=== PATIENT | female | born 1980 ===

== ENCOUNTER 2022-02-07 20:42 | Emergency (ER) | payer SELFPAY ==
--- OUTSIDE RECORDS SUMMARY | 2022-02-07 20:45 | XMS REPORT | Continuity of Care Document ---
:1980 Author Organization [facility] t Address [address] [place] [address] Care Team Providers Name Role Phone Jeovany Cheung APRN Primary Care Physician [phone] [email or web address] Attending Clinician Unavailable RODRI RIZZO Attending Clinician Unavailable [email or web address] Admitting Clinician Unavailable Problems Condition Condition Condition Status Onset Resolution Last Treating Co mments Source Name Details Category Date Date Treatment Clinician Date No known No known Disease Metho di active active st problems problems Hospit [facility] Allergies, Adverse Reactions, Alerts This patient has no known allergies or adverse reactions. Social History Social Habit Start Date Stop Date Quantity Comments Source Sex Assigned At [birth year] [facility] 00:00:00 00:00:00 Smoking Status Start Date Stop Date Source Tobacco smoking consumption unknown [facility] Medications Ordered Filled Start Stop Current Ordering Indication Dosage Frequency Signature Comments Components Source Medication Medication Date Date Medication? Clinician (SIG) Name Name No known No No known Metho di medications 2-[address] 12:51: [facility] 02 l Procedures This patient has no known procedures. Plan of Care Planned Activity Planned Date Details Comments Source Future Scheduled 2022-01-28 BREAST CANCER [facility] Test 07:13:58 SCREENING [code = BREAST CANCER SCREENING] Future Scheduled 2022-01-28 INFLUENZA VACCINE Method [facility] Test 07:13:58 [code = INFLUENZA VACCINE] Future Scheduled 2022-01-28 HEPATITIS B [facility] Test 07:13:58 VACCINES (1 of 3 - 3-dose series) [code = HEPATITIS B VACCINES (1 of 3 - 3-dose series)] Future Scheduled 2022-01-28 [facility] (#1[facility] [code = COVID-19 VACCINE (#1)] Future Scheduled 2022-01-28 Hepatitis C [facility] Test 07:13:58 screening (procedure) [code = 179663155] Future Scheduled 2022-01-28 Screening for [facility] Test 07:13:58 malignant neoplasm of cervix (procedure) [code = 465544310] Encounters Start End Encounter Admission Attending Care Care Encounter Source Date/Time Date/Time Type Type Clinicians Facility Department ID 2021-11-26 2021-11-26 Outpatient [email or web address] PRIV PRIV [id number] [facility] 00:00:00 00:00:00 Rosalind_Hakeem [id number] Medica l 2020-05-03 2020-05-03 Outpatient [facility] [id number] [place] 00:00:00 00:00:00 RODRI [address] 2020-05-03 2020-05-03 Outpatient [facility] [id number] [place] 00:00:00 00:00:00 RODRI [address] Results This patient has no known results.
[2022-02-07 21:26] LABS: Urine Blood 3+ (Negative); Urine Glucose Negative (Negative); Urine Protein 3+ (Negative)
[2022-02-07 21:47] LABS: Urine Bacteria <20 /HPF (<20); Urine Mucus Slight /HPF (None Seen); Urine RBC >50 /HPF (None Seen)
[2022-02-07] MEDS ORDERED: PHENAZOPYRIDINE 100MG TAB PO ONE ×2 (22:47→23:43)
--- NOTE | 2022-02-07 23:28 | ER ---
Nurse's Notes [facility] Name: Kristen Burns Age: 41 yrs Sex: Female : 1980 Arrival Date: 02/07/2022 Time: 20:43 Bed 20 Private MD: Diagnosis: UTI/ Urinary tract infection, site not specified;Hematuria, unspecified;Dysuria Presentation: 02/07 21:00 Chief complaint: Patient states: she has burning with urination, urgency, and blood in bb her urine x 2 hours. Coronavirus screen: At this time, the client does not indicate any symptoms associated with coronavirus-19. Ebola Screen: No symptoms or risks identified at this time. Initial Sepsis Screen: Does the patient meet any 2 criteria? No. Patient's initial sepsis screen is negative. Does the patient have a suspected source of infection? Yes: Dysuria/Frequency/Urgency/UTI. Risk Assessment: Do you want to hurt yourself or someone else? Patient reports no desire to harm self or others. Onset of symptoms was February 07, 2022. 21:00 Method Of Arrival: Ambulatory bb 21:00 Acuity: LIYAH 3 bb Triage Assessment: 21:01 General: Appears in no apparent distress. uncomfortable, Behavior is anxious. Pain: bb Denies pain. Neuro: Level of Consciousness is awake, alert, obeys commands, Oriented to person, place, time, situation. Cardiovascular: Capillary refill < 3 seconds Patient's skin is warm and dry. Respiratory: Respiratory effort is even, unlabored, Respiratory pattern is regular. GI: No signs and/or symptoms were reported involving the gastrointestinal system. : Reports burning with urination, urinary frequency, hematuria. Derm: Skin is pink, warm \T\ dry. Musculoskeletal: Circulation, motion, and sensation intact. 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 - Social history:: Smoking status: Patient denies any tobacco usage or history of. Screenin:11 Abuse screen: Denies threats or abuse. Nutritional screening: No deficits noted. vc1 Tuberculosis screening: No symptoms or risk factors identified. Fall Risk None identified. Assessment: 22:00 Reassessment: No changes from previously documented assessment. Patient and/or family vc1 updated on plan of care and expected duration. Pain level reassessed. 23:11 Reassessment: No changes from previously documented assessment. Patient and/or family vc1 updated on plan of care and expected duration. Pain level reassessed. Vital Signs: 21:00 BP 118 / 87; Pulse 78; Resp 16 S; Temp 98.5(O); Pulse Ox 100% on R/A; Weight 46.27 kg bb (R); Height 5 ft. 3 in. (160.02 cm) (R); Pain 0/10; 22:00 BP 111 / 79; Pulse 77; Resp 16; Pulse Ox 100% ; vc1 23:00 BP 101 / 72; Pulse 68; Resp 17; Pulse Ox 100% ; vc1 21:00 Body Mass Index 18.07 (46.27 kg, 160.02 cm) bb ED Course: 20:43 Patient arrived in ED. as 21:01 Triage completed. bb 21:01 Arm band placed on Patient placed in waiting room, Patient notified of wait time. bb 21:15 Torrey Contreras DO is Attending Physician. ms3 21:27 Olinda Wang, RN is Primary Nurse. vc1 21:30 Patient has correct armband on for positive identification. Bed in low position. Call vc1 light in reach. Pulse ox on. NIBP on. 23:27 Otf Ruiz DO is Referral Physician. ms3 02/08 00:23 No provider procedures requiring assistance completed. Patient did not have IV access vc1 during this emergency room visit. Administered Medications: 02/07 22:49 Drug: Pyridium (phenazopyridine) 100 mg Route: PO; vc1 02/08 00:24 Follow up: Response: No adverse reaction vc1 02/07 23:54 Drug: Rocephin (cefTRIAXone) 1 grams Route: IM; Site: left vastus lateralis; vc1 02/08 00:24 Follow up: Response: No adverse reaction vc1 02/07 23:54 Drug: Pyridium (phenazopyridine) 100 mg Route: PO; vc1 02/08 00:24 Follow up: Response: No adverse reaction vc1 00:24 CANCELLED (Not available in ER): cefPODOXime 100 mg PO once vc1 Medication: 02/07 23:11 VIS not applicable for this client. vc1 Outcome: 23:27 Discharge ordered by ms3 02/08 00:23 Discharged to home ambulatory. vc1 Condition: good Discharge instructions given to patient, Instructed on discharge instructions, follow up and referral plans. medication usage, Demonstrated understanding of instructions, follow-up care, medications, Prescriptions given X 2. 00:25 Patient left the ED. vc1 Signatures: Sammi James Brenda RN RN bb Torrey Contreras DO DO ms3 Olinda Wang RN RN vc1 Corrections: (The following items were deleted from the chart) 02/07 21:03 21:01 Home Meds: None; armin funez 02/08 00:24 02/07 23:54 cefPODOXime 100 mg PO vc1 vc1
--- NOTE | 2022-02-07 23:28 | EDPHYS ---
Physician Documentation [facility] Name: Kristen Burns Age: 41 yrs Sex: Female : 1980 Arrival Date: 02/07/2022 Time: 20:43 Bed 20 Private MD: ED Physician Torrey Contreras HPI: 02/07 21:44 This 41 yrs old Female presents to ER via Ambulatory with complaints of Urinary Problem.ms3 21:44 The patient presents with urinary symptoms, dysuria, frequency, hematuria, urgency. ms3 Onset: The symptoms/episode began/occurred 3 hour(s) ago. Modifying factors: The symptoms are alleviated by nothing. Associated signs and symptoms: Pertinent negatives: fever. Severity of symptoms: At their worst the symptoms were severe, earlier today, in the emergency department the symptoms are unchanged. The patient is sexually active. 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 - Social history:: Smoking status: Patient denies any tobacco usage or history of. ROS: 21:44 Positive for urinary symptoms, urinary frequency, hematuria, burning with urination, ms3 Negative for pelvic pain, flank pain. 21:44 Constitutional: Negative for fever, and chills. Eyes: Negative for injury, pain, redness, and discharge, Neck: Negative for injury, pain, and swelling, Cardiovascular: Negative for chest pain, and palpitations. Respiratory: Negative for shortness of breath, cough, wheezing, and pleuritic chest pain, Abdomen/GI: Negative for abdominal pain, nausea, vomiting, diarrhea, and constipation. 21:44 All other systems are negative. Exam: 21:44 Constitutional: This is a well developed, well nourished patient who is awake, alert, ms3 and in no acute distress. Head/Face: Normocephalic, atraumatic. Neck: Trachea midline, no cervical lymphadenopathy. Supple, full range of motion without nuchal rigidity, or vertebral point tenderness. No Meningismus. Chest/axilla: Normal chest wall appearance and motion. Nontender with no deformity. Cardiovascular: Regular rate and rhythm with a normal S1 and S2. No gallops, murmurs, or rubs. Normal PMI, no JVD. No pulse deficits. Respiratory: Lungs have equal breath sounds bilaterally, clear to auscultation and percussion. No rales, rhonchi or wheezes noted. No increased work of breathing, no retractions or nasal flaring. Abdomen/GI: Soft, non-tender, with normal bowel sounds. No distension or tympany. No guarding or rebound. No evidence of tenderness throughout. Back: No spinal tenderness. No costovertebral tenderness. Full range of motion. Skin: Warm, dry with normal turgor. Normal color with no rashes, no lesions, and no evidence of cellulitis. MS/ Extremity: Pulses equal, no cyanosis. Neurovascular intact. Full, normal range of motion. Vital Signs: 21:00 BP 118 / 87; Pulse 78; Resp 16 S; Temp 98.5(O); Pulse Ox 100% on R/A; Weight 46.27 kg bb (R); Height 5 ft. 3 in. (160.02 cm) (R); Pain 0/10; 22:00 BP 111 / 79; Pulse 77; Resp 16; Pulse Ox 100% ; vc1 23:00 BP 101 / 72; Pulse 68; Resp 17; Pulse Ox 100% ; vc1 21:00 Body Mass Index 18.07 (46.27 kg, 160.02 cm) bb MDM: 21:41 Patient medically screened. ms3 23:27 Data reviewed: vital signs, nurses notes, lab test result(s), and as a result, I will ms3 discharge patient. Counseling: I had a detailed discussion with the patient and/or guardian regarding: the historical points, exam findings, and any diagnostic results supporting the discharge/admit diagnosis, lab results, the need for outpatient follow up, to return to the emergency department if symptoms worsen or persist or if there are any questions or concerns that arise at home. Special discussion: I discussed with the patient/guardian in detail that at this point there is no indication for admission to the hospital. It is understood, however, that if the symptoms persist or worsen the patient needs to return immediately for re-evaluation. 02/07 21:26 Order name: Urine Dipstick-Ancillary; Complete Time: 21:43 EDMS 02/07 21:27 Order name: Urine Culture mw2 02/07 21:27 Order name: Urine Microscopic Only; Complete Time: 22:14 2 02/07 21:28 Order name: Urine --Ancillary (enter results); Complete Time: 22:10 2 02/07 21:28 Order name: Urine Test (obtain specimen); Complete Time: 21:28 2 02/07 21:28 Order name: Urine Dipstick-Ancillary (obtain specimen); Complete Time: 21:28 2 Administered Medications: 22:49 Drug: Pyridium (phenazopyridine) 100 mg Route: PO; vc1 02/08 00:24 Follow up: Response: No adverse reaction vc1 02/07 23:54 Drug: Rocephin (cefTRIAXone) 1 grams Route: IM; Site: left vastus lateralis; vc1 02/08 00:24 Follow up: Response: No adverse reaction vc1 02/07 23:54 Drug: Pyridium (phenazopyridine) 100 mg Route: PO; vc1 02/08 00:24 Follow up: Response: No adverse reaction vc1 00:24 CANCELLED (Not available in ER): cefPODOXime 100 mg PO once vc1 Disposition Summary: 02/07/22 23:27 Discharge Ordered Location: Home ms3 Condition: Stable ms3 Diagnosis - UTI/ Urinary tract infection, site not specified ms3 - Hematuria, unspecified ms3 - Dysuria ms3 Followup: ms3 - With: Otf Ruiz DO - When: 2 - 3 days - Reason: Recheck today's complaints Discharge Instructions: - Discharge Summary Sheet ms3 - Dysuria ms3 - Urinary Tract Infection, Adult ms3 Forms: - Medication Reconciliation Form ms3 - Thank You Letter ms3 - Antibiotic Education ms3 - Prescription Opioid Use ms3 Prescriptions: - Pyridium 200 mg Oral Tablet - take 1 tablet by ORAL route every 8 hours for 3 days; 9 tablet; Refills: 0, ms3 Product Selection Permitted - cefpodoxime 100 mg Oral Tablet - take 1 tablet by ORAL route every 12 hours for 10 days take with food; 20 ms3 tablet; Refills: 0, Product Selection Permitted Signatures: [facility] Josselyn Woodall RN RN bb [place], MyKena 2 Torrey Contreras DO DO ms3 Calcote, Olinda, RN RN vc1 Corrections: (The following items were deleted from the chart) 02/07 21:03 21:01 Home Meds: None; bb bb 02/08 00:24 02/07 23:35 cefPODOXime 100 mg PO once ordered. ms3 vc1 02/08 00:24 02/07 23:54 cefPODOXime 100 mg PO once given. vc1 vc1 02/08 00:24 00:24 cefPODOXime 100 mg PO once ordered. vc1 vc1
[2022-02-07] MEDS ORDERED: LIDOCAINE 1% MPF 2 ML AMPULE ONE (23:46)
[2022-02-07] MEDS ORDERED: CEFTRIAXONE 1000 MG/VIAL ONE (23:46)
[2022-02-08 01:14] VITALS: TEMP 98.5; O2SAT 100
[2022-02-08 01:21] VITALS: BP 101/72
== END 2022-02-08 00:25 | disposition home or self-care (01) ==
LOC: ER 20:42
DX: N39.0 Urinary tract infection, site not specified (principal); R31.9 Hematuria, unspecified; Z88.0 Allergy status to penicillin
CPT/HCPCS: 81003; 81015; 81025; 87077; 87086; 87088; 87186; 96372; 99283